=== PATIENT | male | born 1985 | race Caucasian/White ===

== ENCOUNTER 2018-06-18 13:24 | Emergency (ER) | payer OTHER ==
--- NOTE | 2018-06-18 14:01 | EDPHY ---
HPI/HX/ROS/PE/MDM Narrative: CHIEF COMPLAINT: Lip laceration HPI: The patient is a 32-year-old healthy male. Approximately 1 hr ago, he was using a hand parisa when this slipped and struck him directly in the left lower lip. He denies injury to his teeth, tongue or other parts of his face. Bleeding was controlled with pressure. REVIEW OF SYSTEMS: Aside from elements discussed in the HPI, a comprehensive 10-point review of systems was reviewed and is negative. PMH: None significant. SOCIAL HISTORY: Works for [employer]. PHYSICAL EXAM: General:Patient is alert, in no acute distress. ENT: A 1 cm linear laceration is present within the mucosal surface of the left lower lip. This does not involve the vermilion border. It is not through and through. Teeth, tongue and remainder of exam is normal. Neck: Normal inspection. Full range of motion. Neuro: Oriented x3. Normal motor function. Normal sensory function. ED Course: Procedure: Laceration repair. Verbal consent was obtained from the patient. The 1 cm laceration on the lower lip was anesthetized in the usual fashion. The wound was irrigated, draped and explored to its base. [No] foreign material was identified. There were no deep structures involved. No tendon injury was identified. The wound was repaired with 3 sutures of 5-0 gut. Good approximation was obtained. The procedure was performed by myself. General Time Seen by Provider: 06/18/18 13:40 Initial Vital Signs: Initial Vital Signs Temperature (C) 36.8 C 06/18/18 13:28 Heart Rate 81 06/18/18 13:28 Respiratory Rate 17 06/18/18 13:28 Blood Pressure 139/97 H 06/18/18 13:28 O2 Sat (%) 95 06/18/18 13:28 O2 Delivery Mode Room Air Allergies/Adverse Reactions: No Known Allergies Allergy (Verified 06/18/18 13:28) Home Medications: Medication Instructions Recorded NK [No Known Home Meds] 03/23/16 Departure - Departure Disposition: Home, Routine, Self-Care Clinical Impression: Laceration Condition: Good Instructions: Facial Laceration (ED) Additional Instructions: Return to the Emergency Department for fever, redness, discharge from wound, increasing pain or other worsening of condition. Referrals: NONE *PRIMARY CARE P,. [Primary Care Provider] - As per Instructions Stand Alone Forms: Work Excuse
[2018-06-18 15:13] VITALS: BP 126/76
== END 2018-06-18 15:12 | disposition home or self-care (01) ==
PROC: 0CQ1XZZ Repair Lower Lip, External Approach (ICD-10-PCS; principal; 2018-06-18)
DX: S01.511A Laceration without foreign body of lip, initial encounter (principal); W27.8XXA Contact with other nonpowered hand tool, initial encounter; Y99.0 Civilian activity done for income or pay